=== PATIENT | male | born 1980 | race Caucasian/White ===

== ENCOUNTER 2017-09-29 05:57 | Emergency (ER) | payer SELFPAY ==
--- NOTE | 2017-09-29 07:40 | C.PDOC ---
History Of Present Illness PATIENTS HX IS LIMITED DUE TO CLIN COND 37-YEAR-OLD MALE, PRESENTS TO THE EMERGENCY DEPARTMENT BIBA FOR INTOX. PT DENIES SX @ THIS TIME. ROS LIMITED EXAM NAD NONTOXIC HEENT ATRAUMA PSYCH MILD INTOX, CALM COOPERATIVE NEURO AROUSE TO LIGHT STIMULUS, NO FOCAL DEF EXT ATRAUM REMAINDER NEG Time Seen by Provider: 09/29/17 07:12 Chief Complaint (Nursing): Substance Abuse History/Exam Limitations: intoxication Past Medical History Reviewed: Historical Data, Nursing Documentation, Vital Signs Vital Signs: Last Vital Signs Temp 98.1 F 09/29/17 12:15 Pulse 97 H 09/29/17 12:15 Resp 20 09/29/17 12:15 BP 107/62 09/29/17 12:15 Pulse Ox 96 09/29/17 12:15 Family History: States: No Known Family Hx - Social History Hx Alcohol Use: Yes Hx Substance Use: No - Immunization History Hx Tetanus Toxoid Vaccination: No Hx Influenza Vaccination: No Hx Pneumococcal Vaccination: No Review Of Systems Review Of Systems: ROS cannot be obtained secondary to pt's inabilty to answer questions. Physical Exam - Physical Exam Appears: Non-toxic, No Acute Distress Skin: Normal Color, Warm, Dry, No Rash Head: Normacephalic Eye(s): bilateral: PERRL Nose: Normal Oral Mucosa: Moist Lips: Normal Appearing Neck: Normal ROM Chest: Symmetrical Cardiovascular: Rhythm Regular, No Murmur Respiratory: Normal Breath Sounds, No Accessory Muscle Use Extremity: No Deformity, No Swelling Neurological/Psych: Other (MILD INTOX, CALM COOPERATIVE; AROUSE TO LIGHT STIMULUS, NO FOCAL DEF) ED Course And Treatment O2 Sat by Pulse Oximetry: 99 (RA) Pulse Ox Interpretation: Normal Reevaluation Time: 12:28 Reassessment Condition: Improved (clear speech, steady gait, clear thought. ao3 , no acute intox) Disposition Counseled Patient/Family Regarding: Diagnosis, Need For Followup - Disposition Referrals: [facility] [Outside] [facility] [Outside] Disposition: HOME/ ROUTINE Disposition Time: 12:28 Condition: IMPROVED Instructions: Alcohol Abuse and Alcoholism (DC) Forms: [employer] (Japanese) - Clinical Impression Clinical Impression: Alcohol intoxication - Scribe Statement The provider has reviewed the documentation as recorded by the Scribe (Ben Saleh) All medical record entries made by the Scribe were at my direction and personally dictated by me. I have reviewed the chart and agree that the record accurately reflects my personal performance of the history, physical exam, medical decision making, and the department course for this patient. I have also personally directed, reviewed, and agree with the discharge instructions and disposition.
[2017-09-29 10:42] VITALS: RESP 20
[2017-09-29 12:16] VITALS: BP 107/62; PULSE 97; TEMP 98.1
[2017-09-29 12:30] VITALS: O2SAT 99
== END 2017-09-29 12:42 | disposition home or self-care (01) ==
LOC: C.ER 05:57
DX: F10.129 Alcohol abuse with intoxication, unspecified (principal)